=== PATIENT | female | born 1980 | race Caucasian/White ===

== ENCOUNTER 2017-01-01 00:17 | Emergency (ER) | payer SELFPAY ==
[2017-01-01] MEDS ORDERED: oxyCODONE/Acetamin 5/325 MG* TAB PO ONE (01:04)
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
[2017-01-01] MEDS ORDERED: Acetaminophen TAB* 325 MG PO ONE (02:04)
[2017-01-01 03:05] VITALS: BP 97/63
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
== END 2017-01-01 02:10 | disposition home or self-care (01) ==
LOC: ED 00:17
DX: S16.1XXA Strain of muscle, fascia and tendon at neck level, initial encounter (principal); R51 Headache; F17.210 Nicotine dependence, cigarettes, uncomplicated; M54.2 Cervicalgia; V49.9XXA Car occupant (driver) (passenger) injured in unspecified traffic accident, initial encounter; Y93.9 Activity, unspecified; Y92.9 Unspecified place or not applicable; Y99.9 Unspecified external cause status
CPT/HCPCS: 70450; 72125; 99282; A9270-GY